=== PATIENT | female | born 1960 | race African-American/Black ===

== ENCOUNTER 2016-08-05 08:09 | Emergency (ER) | payer BC ==
[2016-08-05] MEDS ORDERED: HYDROcodone/Acetaminophen 5/325 mg Tablet ONE (08:40)
[2016-08-05] MEDS ORDERED: Ketorolac Tromethamine 60 MG/2 ML VIAL ONE (08:40)
[2016-08-05] MEDS ORDERED: AMOXicillin 250 MG CAP ONE (08:43)
--- NOTE | 2016-08-05 09:02 | ERRECORD ---
[facility] EMERGENCY RECORD HPI TOOTHACHE (08:38 WMEI) CHIEF COMPLAINT: Patient presents for evaluation of toothache, Patient presents for evaluation of jaw swelling. HISTORIAN: History provided by patient. LOCATION: Symptoms are localized. QUALITY: Pain is dull in nature, described as throbbing. TIME COURSE: Gradual onset of symptoms, 2, days priror to arrival. ASSOCIATED WITH: No associated chills, Associated with facial pain, Associated with facial swelling, No associated fever. EXACERBATED BY: Patient's condition exacerbated by nothing. RELIEVED BY: Patient's condition relieved by nothing. ROS (08:38 WMEI) CONSTITUTIONAL: Historian denies chills, denies fever. EYES: Historian denies eye pain, denies eye discharge. ENT: Historian denies otalgia, denies rhinorrhea, reports sore throat. CARDIOVASCULAR: Historian denies chest pain, no radiation. RESPIRATORY: Historian denies cough, denies shortness of breath. GI: Historian denies nausea, denies vomiting. MUSCULOSKELETAL: Historian denies joint redness, denies joint stiffness. SKIN: Historian denies skin changes, denies skin lesions. NEUROLOGIC: Historian denies dizziness, denies mental status changes. PSYCHIATRIC: Historian denies alcohol abuse, reports anxiety, denies drug abuse. PAST MEDICAL HISTORY MEDICAL HISTORY: Flu vaccine not up to date, Tetanus up to date, Pneumococcal vaccine not up to date, Past medical history includes gastrointestinal disease, gastroesophageal reflux disease, Past medical history includes history of hyperlipidemia, high cholesterol, currently being treated, Past medical history includes history of hypertension, which has been treated, Patient is compliant. (08:20 EPRA) Past medical history includes cardiac history, history of hypertension. which has been treated, Patient is compliant. (08:41 WMEI) FEMALE SURGICAL HISTORY: LEFT BREAST BIOPSY, Surgical history of hysterectomy, Date of surgery 1999, Surgical history of orthopedic surgery, LEFT SHOULDER, Date of surgery 02/22/16, Notes: BONE SPURS. (08:20 EPRA) Surgical history of hysterectomy. (08:41 WMEI) PSYCHIATRIC HISTORY: No previous psychiatric history. (08:20 EPRA) not currently under outpatient psychiatric treatment. (08:41 WMEI) SOCIAL HISTORY: Patient denies alcohol use, Patient &a-1R&a+25V*p+0X*s2147Y*c202B*c15G*c2P*p-0X&a-25V&a+1R Name: Denae Olmos : 1960 F55 MedRec: [id number] AcctNum: [id number] Prepared: FriAug 05, 2016 08:58 by Interface Page 1 of 4 pMD [facility] EMERGENCY RECORD currently uses drugs, abuses marijuana, Social drug use, Last used: 2 weeks ago, Patient currently uses tobacco, smokes cigarettes, daily, Patient has smoked for 30 years, Patient smokes 1/2 packs per day, 30+ YEARS, Lives at home, with family. Patient currently uses tobacco. (08:20 EPRA) Patient currently uses tobacco, smokes cigarettes. (08:41 WMEI) FAMILY HISTORY: No known family hisotry. (08:20 EPRA) KNOWN ALLERGIES codeine sulfate: Reaction: Hives, Severity: Mild, Source: Patient CURRENT MEDICATIONS (08:21 EPRA) lisinopril: TABLET : Strength - 40 mg : ORAL Patient Dose: 40 mg Oral once a day. atorvastatin: TABLET : Strength - 40 mg : ORAL Patient Dose: 40 mg Oral once a day (in the evening). spironolactone: TABLET : Strength - 25 mg : ORAL Patient Dose: 25 mg Oral once a day (in the morning). omeprazole: CAPSULE,DELAYED RELEASE (ENTERIC COATED) : Strength - 40 mg : ORAL Patient Dose: 40 mg Oral once a day (in the morning). carvedilol: TABLET : Strength - 12.5 mg : ORAL Patient Dose: 12.5 mg Oral 2 times a day. aspirin: TABLET : Strength - 81 mg : ORAL Patient Dose: 81 mg Oral once a day (in the morning). traMADol: TABLET : Strength - 50 mg : ORAL Patient Dose: 50 mg null every 6 hours PRN. Lyrica: CAPSULE : Strength - 50 mg : ORAL Patient Dose: 50 mg Oral 3 times a day. VITAL SIGNS VITAL SIGNS: BP: 185/99, Pulse: 76, Resp: 20, Temp: 98.6 (Oral), Pain: 10, O2 sat: 100 on Room Air, Time: 08/05/2016 08:17. (08:17 [facility]) BP: 171/100, Pulse: 77, Resp: 20, O2 sat: 100, Time: 08/05/2016 08:21. (08:21 AHOO) BP: 188/99, Pulse: 76, Resp: 14, Pain: 10, O2 sat: 99 on ra, Time: 08/05/2016 08:50. (08:50 JSMI) PHYSICAL EXAM (08:40 WMEI) CONSTITUTIONAL: Vital signs reviewed, Patient alert and oriented to person, place and time. HEAD: Head exam included findings of head atraumatic, normocephalic. &a-1R&a+25V*p+0X*t9193P*c202B*c15G*c2P*p-0X&a-25V&a+1R Name: Denae Olmos : 1960 F55 MedRec: [id number] AcctNum: [id number] Prepared: FriAug 05, 2016 08:58 by Interface Page 2 of 4 pMD [facility] EMERGENCY RECORD EYES: Conjunctiva normal, Sclera normal. ENT: Ear exam normal, Nose exam normal, Pharynx exam normal. NECK: Neck exam included findings of normal range of motion, Trachea midline. RESPIRATORY CHEST: Breath sounds clear, Chest exam included findings of chest movement symmetrical. CARDIOVASCULAR: Cardiovascular exam included findings of heart rate regular rate and rhythm, Heart sounds normal. ABDOMEN FEMALE: Abdominal exam included findings of abdomen nontender, Bowel sounds normal. UPPER EXTREMITY: Upper extremity exam included findings of inspection normal, Range of motion normal, Motor strength normal. LOWER EXTREMITY: Lower extremity exam included findings of inspection normal, Range of motion normal, Motor strength normal. NEURO: [place] coma scale 15, Neuro exam findings include patient oriented to person, place and time, Speech normal, Gait normal. SKIN: Skin exam included findings of skin warm, dry, and normal in color. LYMPHATIC: Lymphatic exam normal. PSYCHIATRIC: Psychiatric exam included findings of patient oriented to person place and time, Normal affect, Judgment normal, Insight normal. MEDICATION ADMINISTRATION SUMMARY Drug Name: [place], Dose Ordered: 5 mg, Route: Oral, Status: Given, Time: 08:45 08/05/2016, Drug Name: amoxicillin, Dose Ordered: 1000 mg, Route: Oral, Status: Given, Time: 08:45 08/05/2016, Drug Name: ketorolac intramuscular, Dose Ordered: 60 mg, Route: Intramuscular, Status: Given, Time: 08:43 08/05/2016, Detailed record available in Medication Service section. PROBLEM LIST No recorded problems DIAGNOSIS (08:44 WMEI) FINAL: PRIMARY: dental pain. PRESCRIPTION (08:43 WMEI) PC Pen V K: TABLET : 500 mg : ORAL : Quantity: 1 Unit: tab(s) Route: ORAL Schedule: 4 times a day Dispense: 28 Unit: tab(s) May substitute. Refills: No Refills . NOTES: No refills. DISPOSITION PATIENT: Disposition Type: Discharge, Disposition: *Discharge Home. (08:44 WMEI) Patient left the department. (08:53 JSUT) &a-1R&a+25V*p+0X*d3292F*c202B*c15G*c2P*p-0X&a-25V&a+1R Name: Denae Olmos : 1960 5 MedRec: [id number] AcctNum: [id number] Prepared: FriAug 05, 2016 08:58 by Interface Page 3 of 4 pMD [facility] EMERGENCY RECORD Lerma: AHOO=GWENDOLYN Cabrera, October EPRA=MILIND Hall, Edda JSMINERVA=MILIND Tang, Niki WMEI=DO Sesay William &a-1R&a+25V*p+0X*j2660J*c202B*c15G*c2P*p-0X&a-25V&a+1R Name: Denae Olmos Malaika : 1960 5 MedRec: [id number] AcctNum: [id number] Prepared: FriAug 05, 2016 08:58 by Interface Page 4 of 4 pMD MTDD
--- NOTE | 2016-08-05 09:07 | PICIS ---
[facility] EMERGENCY RECORD TRIAGE (FriAug 05, 2016 08:15 EPRA) TRIAGE NOTES: Patient c/o right jaw pain and swelling, pain in throat and ear...pain started on Friday. (FriAug 05, 2016 08:15 EPRA) PATIENT: NAME: Denae Olmos, AGE: 55, GENDER: female, : Fri1960, TIME OF GREET: FriAug 05, 2016 08:09, PREFERRED LANGUAGE: Syriac, ETHNICITY: Not or , ECODE BILLING MAP: [facility], SSN: [id number], Zip Code: [address], KG WEIGHT: 108.86 (est.), PHONE: , , , PERSON ID: [id number], PAYMENT: Deepika Zarco, PCP: DO MORALEZ KRISTEL. (FriAug 05, 2016 08:15 EPRA) COMPLAINT: Jaw Pain/Swelling. (FriAug 05, 2016 08:15 EPRA) ADMISSION: URGENCY: 4 Non Urgent, ADMISSION SOURCE: Home, TRANSPORT: CAR, BED: ER -02. (FriAug 05, 2016 08:15 EPRA) SIRS SCORING: Heart Rate 55-109 (0), Temp range 96.8-101.1 (0), respiratory rate 12-24 (0), Mental Status altered: no (0), Yes, Infection or Suspected Infection. (08:20 EPRA) TRIAGE SCREENING: Patient denies suicidal ideation, Patient denies presence of domestic violence. (08:20 EPRA) LMP: LMP: Hysterectomy. (08:20 EPRA) TREATMENTS IN PROGRESS: Treatments given Prehospital: Tramadol 2 mg @ 0600. (08:20 EPRA) PROVIDERS: TRIAGE NURSE: Edda Hall RN. (FriAug 05, 2016 08:15 EPRA) PREVIOUS VISIT ALLERGIES: codeine sulfate. (FriAug 05, 2016 08:15 EPRA) codeine sulfate. (08:20 EPRA) KNOWN ALLERGIES codeine sulfate: Reaction: Hives, Severity: Mild, Source: Patient CURRENT MEDICATIONS (08:21 EPRA) lisinopril: TABLET : Strength - 40 mg : ORAL Patient Dose: 40 mg Oral once a day. atorvastatin: TABLET : Strength - 40 mg : ORAL Patient Dose: 40 mg Oral once a day (in the evening). spironolactone: TABLET : Strength - 25 mg : ORAL Patient Dose: 25 mg Oral once a day (in the morning). omeprazole: CAPSULE,DELAYED RELEASE (ENTERIC COATED) : Strength - 40 mg : ORAL Patient Dose: 40 mg Oral once a day (in the morning). carvedilol: TABLET : Strength - 12.5 mg : ORAL Patient Dose: 12.5 mg Oral 2 times a day. aspirin: TABLET : Strength - 81 mg : ORAL &a-1R&a+25V*p+0X*s8420I*c202B*c15G*c2P*p-0X&a-25V&a+1R Name: Denae Olmos : 1960 F55 MedRec: [id number] AcctNum: [id number] Prepared: FriAug 05, 2016 09:03 by Interface Page 1 of 6 pMD [facility] EMERGENCY RECORD Patient Dose: 81 mg Oral once a day (in the morning). traMADol: TABLET : Strength - 50 mg : ORAL Patient Dose: 50 mg null every 6 hours PRN. Lyrica: CAPSULE : Strength - 50 mg : ORAL Patient Dose: 50 mg Oral 3 times a day. VITAL SIGNS VITAL SIGNS: BP: 185/99, Pulse: 76, Resp: 20, Temp: 98.6 (Oral), Pain: 10, O2 sat: 100 on Room Air, Time: 08/05/2016 08:17. (08:17 AHOO) BP: 171/100, Pulse: 77, Resp: 20, O2 sat: 100, Time: 08/05/2016 08:21. (08:21 AHOO) BP: 188/99, Pulse: 76, Resp: 14, Pain: 10, O2 sat: 99 on ra, Time: 08/05/2016 08:50. (08:50 [facility]) NURSING ASSESSMENT: DENTAL (08:22 EPRA) CONSTITUTIONAL: Patient arrives ambulatory, Gait steady, History obtained from patient, Patient appears comfortable, Patient cooperative, Patient alert, Oriented to person, place and time, Skin warm, Skin dry, Skin normal in color, Mucous membranes pink, Mucous membranes moist, Patient is well-groomed, Patient complains of Right sided facial/jaw swelling, Patient reports the pain is radiating to her throat and right ear. PAIN: to right lower back tooth (teeth), Onset of pain 08/04/2016, constant, on a scale 0-10 patient rates pain as 10, Took 2 Tramadol @ 0600- patient reports does not relieve the pain. DENTAL: Dental assessment findings include mouth with, poor dental hygiene, Teeth abnormal:, broken secondary tooth (teeth), missing secondary tooth (teeth), gums swollen, Associated with, swelling to the right jaw. SAFETY: Cart/Stretcher in lowest position, Family at bedside, Call light within reach, Hospital ID band on. NURSING PROCEDURE: DISCHARGE NOTE (08:50 JSMI) DISCHARGE: Patient discharged to home, ambulating without assistance, family driving, accompanied by //partner, Summary of Care printed/ provided, Patient requested and was provided an electronic copy of Discharge Instructions, Transition record given to patient, Discharge instructions given to patient, Simple or moderate discharge teaching performed, Prescriptions given and instructions on side effects given, Medication reconciliation form given, Above person(s) verbalized understanding of discharge instructions and follow-up care, Patient instructed not to drive home, Patient treated and evaluated by physician. VITAL SIGNS: BP: 188, / 99, Pulse: 76, Resp: 14, Pain: 10, O2 sat: 99, on: ra. &a-1R&a+25V*p+0X*o3661P*c202B*c15G*c2P*p-0X&a-25V&a+1R Name: Denae Olmos : 1960 F55 MedRec: [id number] AcctNum: [id number] Prepared: FriAug 05, 2016 09:03 by Interface Page 2 of 6 pMD [facility] EMERGENCY RECORD NURSING PROCEDURE: NURSE NOTES NURSES NOTES: Report received, Given to: Niki Tang RN, Provided opportunity to answer questions. (08:24 EPRA) Notes: Dr. Sesay aware of elevated BP at time of discharge. Pt instructed to take regularly prescribed BP medication when she gets home. Pt and family at bedside voice understanding. (08:51 JSMI) MEDICATION ADMINISTRATION SUMMARY Drug Name: [place], Dose Ordered: 5 mg, Route: Oral, Status: Given, Time: 08:45 08/05/2016, Drug Name: amoxicillin, Dose Ordered: 1000 mg, Route: Oral, Status: Given, Time: 08:45 08/05/2016, Drug Name: ketorolac intramuscular, Dose Ordered: 60 mg, Route: Intramuscular, Status: Given, Time: 08:43 08/05/2016, Detailed record available in Medication Service section. MEDICATION SERVICE amoxicillin: Order: amoxicillin (amoxicillin trihydrate) - Dose: 1000 mg : Oral Schedule: Now Ordered by: Rom Sesay DO Entered by: Rom Sesay DO FriAug 05, 2016 08:37 , Acknowledged by: Niki Tang RN FriAug 05, 2016 08:39 Documented as given by: Niki Tang RN FriAug 05, 2016 08:45 Patient, Medication, Dose, Route and Time verified prior to administration. Correct patient, time, route, dose and medication confirmed prior to administration, Patient advised of actions and side-effects prior to administration, Allergies confirmed and medications reviewed prior to administration, Patient in position of comfort, Side rails up, Cart in lowest position, Family at bedside. ketorolac intramuscular: Order: ketorolac intramuscular (ketorolac tromethamine) - Dose: 60 mg : Intramuscular Ordered by: Rom Sesay DO Entered by: Rom Sesay DO FriAug 05, 2016 08:35 , Acknowledged by: Niki Tang RN FriAug 05, 2016 08:39 Documented as given by: Niki Tang RN FriAug 05, 2016 08:43 Patient, Medication, Dose, Route and Time verified prior to administration. IM medication, Medication administered to left hip, Correct patient, time, route, dose and medication confirmed prior to administration, Patient advised of actions and side-effects prior to administration, Allergies confirmed and medications reviewed prior to administration, Patient in position of comfort, Side rails up, Cart in lowest position, Family at bedside. [place]: Order: [place] (hydrocodone bitartrate/acetaminophen) - Dose: 5 mg : Oral POTENTIAL ALLERGY REACTION: 'codeine sulfate [codeine/codeine sulfate]' - Reviewed with patient, has taken without reaction &a-1R&a+25V*p+0X*w0787V*c202B*c15G*c2P*p-0X&a-25V&a+1R Name: Denae Olmos : 1960 F55 MedRec: [id number] AcctNum: [id number] Prepared: FriAug 05, 2016 09:03 by Interface Page 3 of 6 pMD [facility] EMERGENCY RECORD Ordered by: Rom Sesay DO Entered by: Rom Sesay DO FriAug 05, 2016 08:36 , Acknowledged by: Niki Tang RN FriAug 05, 2016 08:39 Documented as given by: Niki Tang RN FriAug 05, 2016 08:45 Patient, Medication, Dose, Route and Time verified prior to administration. Correct patient, time, route, dose and medication confirmed prior to administration, Patient advised of actions and side-effects prior to administration, Allergies confirmed and medications reviewed prior to administration, Patient in position of comfort, Side rails up, Cart in lowest position, Family at bedside. HPI TOOTHACHE (08:38 WMEI) CHIEF COMPLAINT: Patient presents for evaluation of toothache, Patient presents for evaluation of jaw swelling. HISTORIAN: History provided by patient. LOCATION: Symptoms are localized. QUALITY: Pain is dull in nature, described as throbbing. TIME COURSE: Gradual onset of symptoms, 2, days priror to arrival. ASSOCIATED WITH: No associated chills, Associated with facial pain, Associated with facial swelling, No associated fever. EXACERBATED BY: Patient's condition exacerbated by nothing. RELIEVED BY: Patient's condition relieved by nothing. ROS (08:38 WMEI) CONSTITUTIONAL: Historian denies chills, denies fever. EYES: Historian denies eye pain, denies eye discharge. ENT: Historian denies otalgia, denies rhinorrhea, reports sore throat. CARDIOVASCULAR: Historian denies chest pain, no radiation. RESPIRATORY: Historian denies cough, denies shortness of breath. GI: Historian denies nausea, denies vomiting. MUSCULOSKELETAL: Historian denies joint redness, denies joint stiffness. SKIN: Historian denies skin changes, denies skin lesions. NEUROLOGIC: Historian denies dizziness, denies mental status changes. PSYCHIATRIC: Historian denies alcohol abuse, reports anxiety, denies drug abuse. PAST MEDICAL HISTORY MEDICAL HISTORY: Flu vaccine not up to date, Tetanus up to date, Pneumococcal vaccine not up to date, Past medical history includes gastrointestinal disease, gastroesophageal reflux disease, Past medical history includes history of hyperlipidemia, high cholesterol, currently being treated, Past medical history includes history of hypertension, which has been treated, Patient is compliant. (08:20 EPRA) &a-1R&a+25V*p+0X*p9682O*c202B*c15G*c2P*p-0X&a-25V&a+1R Name: Denae Olmos : 1960 F55 MedRec: [id number] AcctNum: [id number] Prepared: FriAug 05, 2016 09:03 by Interface Page 4 of 6 pMD [facility] EMERGENCY RECORD Past medical history includes cardiac history, history of hypertension. which has been treated, Patient is compliant. (08:41 WMEI) FEMALE SURGICAL HISTORY: LEFT BREAST BIOPSY, Surgical history of hysterectomy, Date of surgery 1999, Surgical history of orthopedic surgery, LEFT SHOULDER, Date of surgery 02/22/16, Notes: BONE SPURS. (08:20 EPRA) Surgical history of hysterectomy. (08:41 WMEI) PSYCHIATRIC HISTORY: No previous psychiatric history. (08:20 EPRA) not currently under outpatient psychiatric treatment. (08:41 WMEI) SOCIAL HISTORY: Patient denies alcohol use, Patient currently uses drugs, abuses marijuana, Social drug use, Last used: 2 weeks ago, Patient currently uses tobacco, smokes cigarettes, daily, Patient has smoked for 30 years, Patient smokes 1/2 packs per day, 30+ YEARS, Lives at home, with family. Patient currently uses tobacco. (08:20 EPRA) Patient currently uses tobacco, smokes cigarettes. (08:41 WMEI) FAMILY HISTORY: No known family hisotry. (08:20 EPRA) PHYSICAL EXAM (08:40 WMEI) CONSTITUTIONAL: Vital signs reviewed, Patient alert and oriented to person, place and time. HEAD: Head exam included findings of head atraumatic, normocephalic. EYES: Conjunctiva normal, Sclera normal. ENT: Ear exam normal, Nose exam normal, Pharynx exam normal. NECK: Neck exam included findings of normal range of motion, Trachea midline. RESPIRATORY CHEST: Breath sounds clear, Chest exam included findings of chest movement symmetrical. CARDIOVASCULAR: Cardiovascular exam included findings of heart rate regular rate and rhythm, Heart sounds normal. ABDOMEN FEMALE: Abdominal exam included findings of abdomen nontender, Bowel sounds normal. UPPER EXTREMITY: Upper extremity exam included findings of inspection normal, Range of motion normal, Motor strength normal. LOWER EXTREMITY: Lower extremity exam included findings of inspection normal, Range of motion normal, Motor strength normal. NEURO: [place] coma scale 15, Neuro exam findings include patient oriented to person, place and time, Speech normal, Gait normal. SKIN: Skin exam included findings of skin warm, dry, and normal in color. LYMPHATIC: Lymphatic exam normal. PSYCHIATRIC: Psychiatric exam included findings of patient oriented to person place and time, Normal affect, Judgment normal, Insight normal. EVENTS TRANSFER: Triage to Emergency Emergency Room -02. (FriAug 05, &a-1R&a+25V*p+0X*g1760J*c202B*c15G*c2P*p-0X&a-25V&a+1R Name: Denae Olmos : 1960 F55 MedRec: [id number] AcctNum: [id number] Prepared: FriAug 05, 2016 09:03 by Interface Page 5 of 6 pMD [facility] EMERGENCY RECORD 2017 08:15 EPRA) Removed from Emergency Emergency Room -02. (08:53 JSMI) PROBLEM LIST No recorded problems DIAGNOSIS (08:44 WMEI) FINAL: PRIMARY: dental pain. DISPOSITION PATIENT: Disposition Type: Discharge, Disposition: *Discharge Home. (08:44 WMEI) Patient left the department. (08:53 JSMI) INSTRUCTION (08:45 WMEI) DISCHARGE: DENTAL PAIN. FOLLOWUP: DO MORALEZ KRISTEL, Family Practice, [address] [place] [id number], [phone]. SPECIAL: Follow-up with your PCP/dentist. PRESCRIPTION (08:43 WMEI) PC Pen V K: TABLET : 500 mg : ORAL : Quantity: 1 Unit: tab(s) Route: ORAL Schedule: 4 times a day Dispense: 28 Unit: tab(s) May substitute. Refills: No Refills . NOTES: No refills. IMAGING (08:54 JSMI) *SUPPLY CHARGE SHEET: Image captured from scanner. *DISCHARGE INSTRUCTIONS RECEIPT: Image captured from scanner. Lerma: OO=GWENDOLYN Cabrera, October EPRA=MILIND Hall, Edda JSMI=MILIND Tang, Niki WMEI=DO Sesay William &a-1R&a+25V*p+0X*s5275Z*c202B*c15G*c2P*p-0X&a-25V&a+1R Name: Denae Olmos : 1960 F55 MedRec: [id number] AcctNum: [id number] Prepared: FriAug 05, 2016 09:03 by Interface Page 6 of 6 pMD MTDD
== END 2016-08-05 08:46 | disposition home or self-care (01) ==
LOC: BURERS 08:09
DX: K08.89 Other specified disorders of teeth and supporting structures (principal); K21.9 Gastro-esophageal reflux disease without esophagitis; E78.5 Hyperlipidemia, unspecified; I10 Essential (primary) hypertension; F17.210 Nicotine dependence, cigarettes, uncomplicated; Z90.710 Acquired absence of both cervix and uterus
CPT/HCPCS: 96372; J1885

== ENCOUNTER 2016-08-15 04:16 | Emergency (ER) | payer BC ==
[2016-08-15] MEDS ORDERED: Lorazepam 2 MG/ML VIAL ONE (04:36)
[2016-08-15] MEDS ORDERED: Ondansetron HCl/PF 4 MG/2 ML Vial ONE (04:37)
[2016-08-15 05:08] LABS: #Basophils 0.1 thou/uL (0.0-0.2); #Eosinphils 0.2 thou/uL (0.0-0.7); #Lymphocytes 3.3 thou/uL (1.20-3.40); #Monocytes 0.6 thou/uL (0.11-0.59); #Neutrophils 4.2 thou/uL (1.40-6.50); %Basophils 1.5 % (0.0-1.0); %Eosinophils 2.5 % (0.0-10.0); %Monocytes 7.6 % (0.0-10.0); Hematocrit 37.4 % (36.0-47.0); Mean Platelet Volume 7.1 fL (7.4-10.4); Red Blood Cell (RBC) Count 3.93 mill/uL (4.20-5.40); White Blood Cell (WBC) Count 8.5 thou/uL (4.8-10.8)
[2016-08-15 05:19] LABS: Anion Gap 15 mmol/L (10-20); BUN (Urea Nitrogen) 19 mg/dL (9.8-20.1); Calc. Creatinine Clearance 0 mL/min (70-130); Calcium 9.5 mg/dL (7.8-10.44); Carbon Dioxide 21 mmol/L (22-29); Chloride 108 mmol/L (98-107); Estimated GFR-MDRD 47
[2016-08-15 05:23] LABS: Troponin I 0.013 ng/mL (< 0.028)
[2016-08-15] MEDS ORDERED: Morphine Sulfate 2 MG/ML SYRINGE ONE ×2 (05:38→07:27)
--- NOTE | 2016-08-15 07:05 | RAD ---
PORTABLE CHEST: Date: 08/15/16 An AP portable film at 0441 hours is compared with the 10/27/15 study. The heart size is the same. There are no congestive changes of pleural effusions. The lungs are maggie r. The trachea is midline. IMPRESSION: No acute thoracic findings. POS: HOME
--- NOTE | 2016-08-15 09:09 | ERRECORD ---
[facility] EMERGENCY RECORD HPI CHEST PAIN (04:39 RWAG) CHIEF COMPLAINT: Patient presents for evaluation of chest pain, ongoing, Patient presents for evaluation of X 4 hours. HISTORIAN: History provided by patient. LOCATION: Symptoms are localized, most severe in substernal area, Pain radiates, pain began in mid back. QUALITY: Described as similar to previous episodes. SEVERITY: Maximum severity of symptoms mild, Currently symptoms are mild, Maximum severity of pain rated as 6/10, Current severity of pain rated as 6/10. TIME COURSE: Patient unable to describe onset of symptoms, There has been no change in the patient's symptoms over time. ASSOCIATED WITH: Denies any other complaints. EXACERBATED BY: Patient's condition exacerbated by nothing. RELIEVED BY: Patient's condition relieved by nothing. HEART SCORE: Patients history is Slightly Suspicious (0), Patients ECG is normal (0), Patients age is greater than 45 and less than 65 (1), Patient has 1 or 2 risk factors (1). ROS (04:41 RWAG) CONSTITUTIONAL: Negative constitutional review of systems. EYES: Negative eye review of systems. ENT: Negative ears, nose, throat review of systems. CARDIOVASCULAR: Negative cardiovascular review of systems. RESPIRATORY: Negative respiratory review of systems. GI: Negative gastrointestinal review of systems. GENITOURINARY FEMALE: Negative genitourinary review of systems. MUSCULOSKELETAL: Negative musculoskeletal review of systems. SKIN: Negative skin review of systems. NEUROLOGIC: Negative neurologic review of systems. ENDOCRINE: Negative endocrine review of systems. HEMO/LYMPHATIC: Normal hematologic/lymphatic system review. ALLERGIC/IMMUNOLOGIC: Normal allergy/immunologic system review. PSYCHIATRIC: Historian reports anxiety. NOTES: All systems reviewed, negative except as described above. PAST MEDICAL HISTORY (04:32 MVIL) MEDICAL HISTORY: Flu vaccine not up to date, Tetanus up to date, Pneumococcal vaccine not up to date, Past medical history includes gastrointestinal disease, gastroesophageal reflux disease, Past medical history includes history of hyperlipidemia, high cholesterol, currently being treated, Past medical history includes history of hypertension, which has been treated, Patient is compliant. Past medical history includes cardiac history, Past medical history includes history of hypertension, which has been treated, Patient is compliant. REVIEWED 08/15/16. &a-1R&a+25V*p+0X*[id number]*c202B*c15G*c2P*p-0X&a-25V&a+1R Name: Denae Olmos : 1960 F55 MedRec: [id number] AcctNum: [id number] Prepared: Reyna Aug 15, 2016 09:05 by Interface Page 1 of 4 pMD [facility] EMERGENCY RECORD FEMALE SURGICAL HISTORY: LEFT BREAST BIOPSY, Surgical history of hysterectomy, Date of surgery 1999, Surgical history of orthopedic surgery, LEFT SHOULDER, Date of surgery 02/22/16, Notes: BONE SPURS. Surgical history of hysterectomy. REVIEWED 08/15/16. PSYCHIATRIC HISTORY: No previous psychiatric history. not currently under outpatient psychiatric treatment. REVIEWED 08/15/16. SOCIAL HISTORY: Patient denies alcohol use, Patient currently uses drugs, abuses marijuana, Social drug use, Last used: 2 weeks ago, Patient currently uses tobacco, smokes cigarettes, daily, Patient has smoked for 30 years, Patient smokes 1/2 packs per day, 30+ YEARS, Lives at home, with family. Patient currently uses tobacco. Patient currently uses tobacco, smokes cigarettes. REVIEWED 08/15/16. FAMILY HISTORY: No known family hisotry. REVIEWED 08/15/16. KNOWN ALLERGIES codeine sulfate: Reaction: Hives, Severity: Mild, Source: Patient CURRENT MEDICATIONS (04:50 PGRI) lisinopril: TABLET : Strength - 40 mg : ORAL Patient Dose: 40 mg Oral once a day. atorvastatin: TABLET : Strength - 40 mg : ORAL Patient Dose: 40 mg Oral once a day (in the evening). spironolactone: TABLET : Strength - 25 mg : ORAL Patient Dose: 25 mg Oral once a day (in the morning). omeprazole: CAPSULE,DELAYED RELEASE (ENTERIC COATED) : Strength - 40 mg : ORAL Patient Dose: 40 mg Oral once a day (in the morning). carvedilol: TABLET : Strength - 12.5 mg : ORAL Patient Dose: 12.5 mg Oral 2 times a day. aspirin: TABLET : Strength - 81 mg : ORAL Patient Dose: 81 mg Oral once a day (in the morning). traMADol: TABLET : Strength - 50 mg : ORAL Patient Dose: 50 mg null every 6 hours PRN. Lyrica: CAPSULE : Strength - 50 mg : ORAL Patient Dose: 50 mg Oral 3 times a day. PC Pen V K: TABLET : Strength - 500 mg : ORAL Patient Dose: 1 tab(s) Oral 4 times a day. VITAL SIGNS &a-1R&a+25V*p+0X*t9319B*c202B*c15G*c2P*p-0X&a-25V&a+1R Name: Denae Olmos : 1960 F55 MedRec: [id number] AcctNum: [id number] Prepared: Reyna Aug 15, 2016 09:05 by Interface Page 2 of 4 pMD [facility] EMERGENCY RECORD VITAL SIGNS: BP: 186/110, Pulse: 71, Resp: 27, Temp: 98.1 (Oral), Pain: 6, O2 sat: 100 on Room Air, Time: 08/15/2016 04:22. (04:22 MVIL) BP: 163/91, Pulse: 68, Resp: 19, Pain: 9, O2 sat: 100 on 2L Oxygen, Time: 08/15/2016 04:50. (04:50 MVIL) Pain: 6, Time: 08/15/2016 05:03. (05:03 MVIL) BP: 172/101, Pulse: 68, Resp: 17, O2 sat: 100 on 2L Oxygen, Time: 08/15/2016 05:33. (05:33 PGRI) BP: 142/78, Time: 08/15/2016 05:37. (05:37 PGRI) BP: 130/79, Pulse: 62, Resp: 18 (Non-Labored), Temp: 97.9 (Oral), Pain: 4, O2 sat: 100 on 2L Oxygen, Time: 08/15/2016 06:08. (06:08 PGRI) BP: 156/88, Pulse: 63, Resp: 20, Pain: 5, Time: 08/15/2016 07:15. (07:15 KMOR) O2 sat: 99 on 2L Oxygen, Time: 08/15/2016 07:41. (07:41 AHOO) BP: 151/97, Pulse: 60, Resp: 15, Temp: 98.0 (Oral), Pain: 4, O2 sat: 100 on 2L Oxygen, Time: 08/15/2016 08:00. (08:00 KMOR) PHYSICAL EXAM (04:42 RWAG) CONSTITUTIONAL: Vital Signs Reviewed, Patient afebrile, Pulse normal, Blood pressure, hypertensive, Respiratory rate, increased, Patient appears non toxic, Patient alert and oriented to person, place and time, pt tearful, very anxious. HEAD: Head exam normal. EYES: Eye exam normal. ENT: ENT exam normal. NECK: Neck exam normal. RESPIRATORY CHEST: Respiratory and chest exam normal. CARDIOVASCULAR: Cardiovascular assessment normal. ABDOMEN FEMALE: Abdominal exam normal. BACK: Back exam normal. UPPER EXTREMITY: Upper extremity exam normal. LOWER EXTREMITY: Lower extremity exam normal. NEURO: Verna coma scale 15, Neuro exam findings include patient oriented to person, place and time, Speech normal, Gait normal. SKIN: Skin exam normal. LYMPHATIC: Lymphatic exam normal. PSYCHIATRIC: Psychiatric exam included findings of patient oriented to person place and time, Affect, anxious. EKG INTERPRETATION (04:37 RWAG) 12 LEAD EKG INTERPRETATION: 12 lead EKG interpreted by Emergency Department Physician at time of study, 12 lead EKG shows normal sinus rhythm, Rate (beats per minute): 69, with no ectopics, No previous EKG available for comparison, Conduction normal, ST segments normal, T waves normal, [place] normal, Clinical impression:, non-specific EKG. RADIOLOGYINTERPRETATION (05:39 RWAG) CHEST: Films of the chest show, cardiomegaly. &a-1R&a+25V*p+0X*[id number]*c202B*c15G*c2P*p-0X&a-25V&a+1R Name: Denae Olmos : 1960 F55 MedRec: [id number] AcctNum: [id number] Prepared: [facility] Aug 15, 2016 09:05 by Interface Page 3 of 4 pMD [facility] EMERGENCY RECORD MEDICATION ADMINISTRATION SUMMARY Drug Name: *morphine injection, Dose Ordered: 2 mg, Route: IV Push, Status: Given, Time: 07:32 08/15/2016, Drug Name: morphine injection, Dose Ordered: 2 mg, Route: IV Push, Status: Given, Time: 05:40 08/15/2016, Drug Name: aspirin oral, Dose Ordered: 324 mg, Route: Oral, Status: Given, Time: 04:49 08/15/2016, Drug Name: morphine injection, Dose Ordered: 4 mg, Route: IV Push, Status: Given, Time: 04:48 08/15/2016, Drug Name: ondansetron HCl intravenous, Dose Ordered: 8 mg, Route: IV Push, Status: Given, Time: 04:47 08/15/2016, Drug Name: LORazepam injection, Dose Ordered: 1 mg, Route: IV Push, Status: Given, Time: 04:47 08/15/2016, *Additional information available in notes, Detailed record available in Medication Service section. PROBLEM LIST No recorded problems DIAGNOSIS (05:39 RWAG) FINAL: PRIMARY: CHEST PAIN UNSPECIFIED. PRESCRIPTION No recorded prescriptions DISPOSITION PATIENT: Disposition Type: Discharge, Disposition: *Discharge Home, Disposition Transport: Ambulance, Condition: Improved. (05:39 RWAG) Disposition Type: Transfer, Disposition: Transfer to [facility]. (05:41 RWAG) Patient left the department. (08:58 AHOO) [place]: AHOO=VINCENT CabreraN, October KMOR=MILIND Troy, Crissy MVIL=MILIND Montes, Shelbie PGRI=MILIND Hernandez, Rita RWAG=MD Cedric, Abraham &a-1R&a+25V*p+0X*[id number]*c202B*c15G*c2P*p-0X&a-25V&a+1R Name: AmarilisDenae : 1960 F55 MedRec: [id number] AcctNum: [id number] Prepared: [facility] Aug 15, 2016 09:05 by Interface Page 4 of 4 pMD MTDD
--- NOTE | 2016-08-15 09:13 | PICIS ---
[facility] EMERGENCY RECORD TRIAGE (FriAug 15, 2016 04:29 MVIL) TRIAGE NOTES: C/O LEFT SIDED CP RADIATING TO MID BACK WITH NECK PAIN STARTING AT 12AM. (FriAug 15, 2016 04:29 MVIL) PATIENT: NAME: Denae Olmos, AGE: 55, GENDER: female, : Fri1960, TIME OF GREET: FriAug 15, 2016 04:17, PREFERRED LANGUAGE: [place], ETHNICITY: Not or , ECODE BILLING MAP: [facility], SSN: [id number], Zip Code: [address], KG WEIGHT: 107.05, HEIGHT/LENGTH: 165.10cm, BMI: 39.27, PHONE: , , , PERSON ID: [id number], PAYMENT: Deepika Zarco, PCP: DO MORALEZ KRISTEL. (FriAug 15, 2016 04:29 MVIL) COMPLAINT: HIGH RISK COMPLAINT: CHEST PAIN. (FriAug 15, 2016 04:29 MVIL) ADMISSION: URGENCY: 3 Urgent, ADMISSION SOURCE: Home, TRANSPORT: CAR, BED: ER -02. (FriAug 15, 2016 04:29 MVIL) ASSESSMENT: Assessment: C/O MIDSTERNAL LEFT SIDED CP RADIATING TO MID BACK AND NECK SINCE 12AM TONIGHT. ALSO SOB., Symptoms began 08/15/2016 04:31, Symptoms began 4 hours ago. (04:32 MVIL) PAIN: Patient complains of pain described as, pressure, on a scale 0-10 patient rates pain as 6, Pain is constant, No aggravating factors, No relieving factors. (04:32 MVIL) IMMUNIZATIONS: Flu vaccine up to date, Tetanus immunization up to date, Pneumococcal vaccine up to date. (04:32 MVIL) SIRS SCORING: Heart Rate 55-109 (0), Temp range 96.8-101.1 (0), respiratory rate 12-24 (0), Mental Status altered: no (0), Infection or Suspected Infection: No. (04:32 MVIL) TRIAGE SCREENING: Patient denies suicidal ideation, Patient denies presence of domestic violence. (04:32 MVIL) TREATMENTS IN PROGRESS: Patient on oxygen, via nasal canullae, Percent O2 =100, Patient on shrimp peeler, Rhythm: NSR. (04:32 MVIL) PROVIDERS: TRIAGE NURSE: Shelbie Montes RN. (FriAug 15, 2016 04:29 MVIL) VITAL SIGNS: BP 186/110, Pulse 71, Resp 27, Temp 98.1, (Oral), Pain 6, O2 Sat 100, on Room Air, Time 08/15/2016 04:22. (04:22 MVIL) PREVIOUS VISIT ALLERGIES: codeine sulfate. (FriAug 15, 2016 04:29 MVIL) codeine sulfate. (04:32 MVIL) KNOWN ALLERGIES codeine sulfate: Reaction: Hives, Severity: Mild, Source: Patient CURRENT MEDICATIONS (04:50 PGRI) lisinopril: TABLET : Strength - 40 mg : ORAL Patient Dose: 40 mg Oral once a day. atorvastatin: TABLET : Strength - 40 mg : ORAL Patient Dose: 40 mg Oral once a day (in the evening). &a-1R&a+25V*p+0X*m2450E*c202B*c15G*c2P*p-0X&a-25V&a+1R Name: Denae Olmos : 1960 F55 MedRec: [id number] AcctNum: [id number] Prepared: FriAug 15, 2016 09:10 by Interface Page 1 of 13 pMD [facility] EMERGENCY RECORD spironolactone: TABLET : Strength - 25 mg : ORAL Patient Dose: 25 mg Oral once a day (in the morning). omeprazole: CAPSULE,DELAYED RELEASE (ENTERIC COATED) : Strength - 40 mg : ORAL Patient Dose: 40 mg Oral once a day (in the morning). carvedilol: TABLET : Strength - 12.5 mg : ORAL Patient Dose: 12.5 mg Oral 2 times a day. aspirin: TABLET : Strength - 81 mg : ORAL Patient Dose: 81 mg Oral once a day (in the morning). traMADol: TABLET : Strength - 50 mg : ORAL Patient Dose: 50 mg null every 6 hours PRN. Lyrica: CAPSULE : Strength - 50 mg : ORAL Patient Dose: 50 mg Oral 3 times a day. PC Pen V K: TABLET : Strength - 500 mg : ORAL Patient Dose: 1 tab(s) Oral 4 times a day. VITAL SIGNS VITAL SIGNS: BP: 186/110, Pulse: 71, Resp: 27, Temp: 98.1 (Oral), Pain: 6, O2 sat: 100 on Room Air, Time: 08/15/2016 04:22. (04:22 MVIL) BP: 163/91, Pulse: 68, Resp: 19, Pain: 9, O2 sat: 100 on 2L Oxygen, Time: 08/15/2016 04:50. (04:50 MVIL) Pain: 6, Time: 08/15/2016 05:03. (05:03 MVIL) BP: 172/101, Pulse: 68, Resp: 17, O2 sat: 100 on 2L Oxygen, Time: 08/15/2016 05:33. (05:33 PGRI) BP: 142/78, Time: 08/15/2016 05:37. (05:37 PGRI) BP: 130/79, Pulse: 62, Resp: 18 (Non-Labored), Temp: 97.9 (Oral), Pain: 4, O2 sat: 100 on 2L Oxygen, Time: 08/15/2016 06:08. (06:08 PGRI) BP: 156/88, Pulse: 63, Resp: 20, Pain: 5, Time: 08/15/2016 07:15. (07:15 KMOR) O2 sat: 99 on 2L Oxygen, Time: 08/15/2016 07:41. (07:41 AHOO) BP: 151/97, Pulse: 60, Resp: 15, Temp: 98.0 (Oral), Pain: 4, O2 sat: 100 on 2L Oxygen, Time: 08/15/2016 08:00. (08:00 KMOR) NURSING ASSESSMENT: CARDIOVASCULAR (04:46 PGRI) CONSTITUTIONAL: Patient arrives ambulatory, Gait steady, History obtained from patient, Patient appears, anxious, in distress due to pain, Patient cooperative, Patient alert, Oriented to person, place and time, Skin warm, Skin dry, Skin normal in color, Mucous membranes pink, Mucous membranes moist, Patient complains of chest pain, patient arrives to ER c/o chest pain/back pain/neck pain since midnight. patient states the pain has gotten worse as the night has gone on. denies nausea/vomiting. also c/o sob with exertion. denies diaphoresis/dizziness. PAIN: pressure pain, to the left chest, &a-1R&a+25V*p+0X*d6236G*c202B*c15G*c2P*p-0X&a-25V&a+1R Name: Denae Olmos : 1960 F55 MedRec: [id number] AcctNum: [id number] Prepared: Reyna Aug 15, 2016 09:10 by Interface Page 2 of 13 pMD [facility] EMERGENCY RECORD Pain radiates, to the back, to the neck, Onset of pain 08/15/2016 00:00, on a scale 0-10 patient rates pain as 6, Nothing has been tried to alleviate the pain. CARDIOVASCULAR: Cardiovascular assessment findings include heart rate normal, Heart rhythm normal sinus, Heart sounds normal, S1, S2, Left radial pulse +3(easily palpated, considered normal), Right radial pulse +3(easily palpated, considered normal), Left dorsalis pedis pulse +2(difficult to palpate), Right dorsalis pedis pulse +2(difficult to palpate), No associated diaphoresis, Associated with dyspnea, with exertion, no associated dizziness, no associated edema, no associated palpitations, no associated paresthesias, no associated syncopal episode, no associated weakness, No history of pulmonary embolism, No history of DVT or leg swelling. RESPIRATORY/CHEST: Breath sounds clear, Respiratory assessment findings include respiratory effort easy, Respirations regular, Conversing normally, Neck and chest exam findings include trachea midline, Chest expansion equal, Chest movement symmetrical, Signs of distress, tripod positioning, in mild distress, no associated cough noted, no associated fever. SAFETY: Side rails up, Cart/Stretcher in lowest position, Call light within reach, Hospital ID band on. NURSING ASSESSMENT: FALL RISK (06:10 PGRI) FALL RISK: Change in blood pressure (1), Total score 1. NURSING ASSESSMENT: SKIN (06:10 PGRI) SKIN: Skin assessment findings include skin warm, Skin dry, Skin normal in color, Inspection findings include: No pressure ulcer to the shoulder, Inspection findings include no pressure ulcer to the elbow, Inspection findings include no pressure ulcers to the hip, Inspection findings include no pressure ulcer to the sacrum, Inspection findings include no pressure ulcer to the heel, Inspection findings include no pressure ulcer, Inspection findings include no pressure ulcer. TERRENCE SCALE: (3) Sensory perception slightly limited, (3) Skin is occasionally moist, (3) Patient walks occasionally, (4) No mobility limitations, (3) Adequate nutrition, (2) Patient has potential problem moving, Terrence Risk Total: 18. SAFETY: Side rails up, Cart/Stretcher in lowest position, Call light within reach, Hospital ID band on. NURSING PROCEDURE: BEDSIDE RADIOLOGY (04:45 PGRI) PATIENT IDENTIFIER: Patient actively involved in identification process, Patient's identity verified by patient stating name, Patient's identity verified by patient stating date. BEDSIDE RADIOLOGY: Portable chest x-ray performed. &a-1R&a+25V*p+0X*w0723H*c202B*c15G*c2P*p-0X&a-25V&a+1R Name: Denae Olmos : 1960 F55 MedRec: [id number] AcctNum: [id number] Prepared: [facility] Aug 15, 2016 09:10 by Interface Page 3 of 13 D [facility] EMERGENCY RECORD SAFETY: Side rails up, Cart/Stretcher in lowest position, Call light within reach, Hospital ID band on. NURSING PROCEDURE: [employer] AND [employer]ATOR BRUSH CUTTER (04:46 PGRI) PATIENT IDENTIFIER: Patient actively involved in identification process, Patient's identity verified by patient stating name, Patient's identity verified by patient stating date. [employer] GENERATOR BRUSH CUTTER: Cardiac monitoring indicated for complaint of chest pain, Patient placed on shrimp peeler, Patient placed on non-invasive blood pressure monitor, Patient placed on continuous pulse oximetry. SAFETY: Side rails up, Cart/Stretcher in lowest position, Call light within reach, Hospital ID band on. NURSING PROCEDURE: EKG CHART (04:29 PGRI) PATIENT IDENTIFIER: Patient actively involved in identification process, Patient's identity verified by patient stating name, Patient's identity verified by patient stating date. EKG: EKG indicated for complaint of chest pain, 12 lead EKG performed on the left chest, done by [email or web address], first EKG. SAFETY: Side rails up, Cart/Stretcher in lowest position, Call light within reach, Hospital ID band on. NURSING PROCEDURE: IV PATIENT IDENITIFIER: Patient actively involved in identification process, Patient's identity verified by patient stating name, Patient's identity verified by patient stating date. (04:44 PGRI) IV SITE 1: IV therapy indicated for hydration, IV therapy indicated for medication administration, IV established, to the left wrist, using a 20 gauge catheter, in two attempts, Saline lock established, Flushed with normal saline (mls): 10ml, Labs drawn at time of placement, labeled in the presence of the patient and sent to lab. (04:44 PGRI) FOLLOW-UP SITE 1: After procedure, sterile transparent dressing applied, After procedure, no drainage at IV site, After procedure, no swelling at IV site, After procedure, no redness at IV site, Notes: IV PATENT AND NO REDNESS, SWELLING OR BRUISING NOTED AT SITE UPON TRANSFER TO [facility]. (08:53 AHOO) SAFETY: Side rails up, Cart/Stretcher in lowest position, Call light within reach, Hospital ID band on. (04:44 PGRI) NURSING PROCEDURE: NURSE NOTES NURSES NOTES: Notes: shelbie spoke to transfer center. they will call back about patient's insurance. (05:43 PGRI) Notes: patient resting in bed at this time on phone. RR even and unlabored. in NAD at this time. awaiting transfer center call. (06:09 PGRI) Notes: Report received from MILIND Morfin. Patient resting back in bed, lights turned down and warm blanket given to patient. Patient &a-1R&a+25V*p+0X*d7812A*c202B*c15G*c2P*p-0X&a-25V&a+1R Name: Denae Olmos : 1960 F55 MedRec: [id number] AcctNum: [id number] Prepared: Reyna Aug 15, 2016 09:10 by Interface Page 4 of 13 pMD [facility] EMERGENCY RECORD informed awaiting call back from [facility]. Patient reports pain in starting to come back, will notify physician/. (07:09 KMOR) Notes: Called transfer center to request contacting [facility] for transfer due to med phone being down. (07:47 KMOR) NURSING PROCEDURE: OXYGEN THERAPY (05:30 PGRI) PATIENT IDENTIFIER: Patient actively involved in identification process, Patient's identity verified by patient stating name, Patient's identity verified by patient stating date. OXYGEN THERAPY: 2L oxygen given, via nasal cannula applied, Applied by milind morfin. SAFETY: Side rails up, Cart/Stretcher in lowest position, Family at bedside, Call light within reach, Hospital ID band on. NURSING PROCEDURE: TRANSFER (08:54 KMOR) TRANSFER: Reason for transfer need for specialized care, Diagnosis: chest pain, Accepting institution: [facility] Accepting physician: Og, Referring physician: Cedric, Transported by urgent ambulance, accompanied by emergency medical services personnel, Report called to receiving facility, MILIND Napoles, Provided opportunity to answer questions, Bed assigned Er to ER, Summary of Care printed, Copy of patient record prepared for receiving facility, Copy of diagnostic studies, Status of patient's valuables documented on chart, Medication reconciliation form prepared and sent to receiving facility, Patient consent for transfer signed. BELONGINGS: Belongings remain with patient, Valuables remain with patient. NOTES: Notes: 0534 Transfer center contacted for transfer to [facility] for insurance reasons, 0757 Requested to attempt trans to [facility] since the med phone were down. 0827 Dr. Foley at [facility] accept, 0827 Leonila Abebe AD approval, 0836 EMS contacted. 0845 EMS to room 0854 Patient departed with belongings. ORDER DETAILS Order Name: B type Natriuretic Peptide, Status: Active, Time: 04:37 08/15/2016, User: KAITY, - Ordered for: MD Steele Richard, - Entered by: MD Steele Richard - Thu Aug 15, 2016 04:37, - Quantity: 1, Order Name: Basic Metabolic Panel, Status: Active, Time: 04:37 08/15/2016, User: KAITY, - Ordered for: MD Steele Richard, - Entered by: MD Steele Richard - Thu Aug 15, 2016 04:37, - Quantity: 1, Order Name: [employer]OR [employer]ATOR BRUSH CUTTER ED, Status: Done, Time: 04:40 08/15/2016, User: FLORA, - Ordered for: MD Steele Richard, &a-1R&a+25V*p+0X*g8213M*c202B*c15G*c2P*p-0X&a-25V&a+1R Name: Denae Olmos : 1960 F55 MedRec: [id number] AcctNum: [id number] Prepared: FriAug 15, 2016 09:10 by Interface Page 5 of 13 D [facility] EMERGENCY RECORD - Entered by: MD Steele Richard - FriAug 15, 2016 04:37, - Quantity: 1, Order Name: Cardiac Profile w/CKMB & Troponin - I, Status: Active, Time: 04:37 08/15/2016, User: RWKHRIS, - Ordered for: MD Steele Richard, - Entered by: MD Steele Richard - FriAug 15, 2016 04:37, - Quantity: 1, Order Name: CBC with Differential, Status: Active, Time: 04:37 08/15/2016, User: KAITY, - Ordered for: MD Steele Richard, - Entered by: MD Steele Richard - FriAug 15, 2016 04:37, - Quantity: 1, Order Name: EKG 12 Lead in Emergency Room, Status: Active, Time: 04:37 08/15/2016, User: KAITY, - Ordered for: MD Steele Richard, - Entered by: MD Steele Richard - FriAug 15, 2016 04:37, - Quantity: 1, Order Name: SALINE LOCK, Status: Done, Time: 04:40 08/15/2016, User: FLORA, - Ordered for: MD Steele Richard, - Entered by: MD Steele Richard - FriAug 15, 2016 04:37, - Quantity: 1, Order Name: XR Chest 1 View Portable, Status: Active, Time: 04:37 08/15/2016, User: RWKHRIS, - Ordered for: MD Steele Richard, - Entered by: MD Steele Richard - FriAug 15, 2016 04:37, - Quantity: 1. MEDICATION ADMINISTRATION SUMMARY Drug Name: *morphine injection, Dose Ordered: 2 mg, Route: IV Push, Status: Given, Time: 07:32 08/15/2016, Drug Name: morphine injection, Dose Ordered: 2 mg, Route: IV Push, Status: Given, Time: 05:40 08/15/2016, Drug Name: aspirin oral, Dose Ordered: 324 mg, Route: Oral, Status: Given, Time: 04:49 08/15/2016, Drug Name: morphine injection, Dose Ordered: 4 mg, Route: IV Push, Status: Given, Time: 04:48 08/15/2016, Drug Name: ondansetron HCl intravenous, Dose Ordered: 8 mg, Route: IV Push, Status: Given, Time: 04:47 08/15/2016, Drug Name: LORazepam injection, Dose Ordered: 1 mg, Route: IV Push, Status: Given, Time: 04:47 08/15/2016, *Additional information available in notes, Detailed record available in Medication Service section. MEDICATION SERVICE aspirin oral: Order: aspirin oral (aspirin) - Dose: 324 mg : Oral Schedule: Now Ordered by: Abraham Steele MD &a-1R&a+25V*p+0X*p1017A*c202B*c15G*c2P*p-0X&a-25V&a+1R Name: Denae Olmos : 1960 F55 MedRec: [id number] AcctNum: [id number] Prepared: Reyna Aug 15, 2016 09:10 by Interface Page 6 of 13 pMD [facility] EMERGENCY RECORD Entered by: Abraham Steele MD [facility] Aug 15, 2016 04:34 Documented as given by: Shelbie Montes RN [facility] Aug 15, 2016 04:49 Patient, Medication, Dose, Route and Time verified prior to administration. Amount given: 354MG, Correct patient, time, route, dose and medication confirmed prior to administration, Patient advised of actions and side-effects prior to administration, Allergies confirmed and medications reviewed prior to administration, Patient in position of comfort, Side rails up, Cart in lowest position. : Follow Up : Response assessment performed, No signs or symptoms of allergic reaction noted. (08:53 OO) LORazepam injection: Order: LORazepam injection (lorazepam) - Dose: 1 mg : IV Push Schedule: Now Ordered by: Abraham Steele MD Entered by: Abraham Steele MD [facility] Aug 15, 2016 04:36 Documented as given by: Shelbie Montes RN [facility] Aug 15, 2016 04:47 Patient, Medication, Dose, Route and Time verified prior to administration. Amount given: 1MG, Amount wasted: 1MG, IV SITE #1 IVP, initial medication, Slowly, Catheter placement confirmed via flush prior to administration, IV site without signs or symptoms of infiltration during medication administration, No swelling during administration, No drainage during administration, IV flushed after administration, Correct patient, time, route, dose and medication confirmed prior to administration, Patient advised of actions and side-effects prior to administration, Allergies confirmed and medications reviewed prior to administration, Patient in position of comfort, Side rails up, Cart in lowest position. : Follow Up : Response assessment performed, No signs or symptoms of allergic reaction noted, _IV SITE #1:_. (08:53 OO) morphine injection: Order: morphine injection (morphine sulfate) - Dose: 4 mg : IV Push POTENTIAL ALLERGY REACTION: 'codeine sulfate [codeine/codeine sulfate]' - Benefits outweigh risks, Not a true drug allergy, Potential interaction discussed with patient/family Schedule: Now Ordered by: Abraham Steele MD Entered by: Abraham Steele MD [facility] Aug 15, 2016 04:34 Documented as given by: Shelbie Montes RN [facility] Aug 15, 2016 04:48 Patient, Medication, Dose, Route and Time verified prior to administration. Amount given: 4MG, IV SITE #1 IVP, initial medication, Slowly, Catheter placement confirmed via flush prior to administration, IV site without signs or symptoms of infiltration during medication administration, No swelling during administration, No drainage during administration, IV flushed after administration, Correct patient, &a-1R&a+25V*p+0X*p0448A*c202B*c15G*c2P*p-0X&a-25V&a+1R Name: Denae Olmos : 1960 F55 MedRec: [id number] AcctNum: [id number] Prepared: Reyna Aug 15, 2016 09:10 by Interface Page 7 of 13 pMD [facility] EMERGENCY RECORD time, route, dose and medication confirmed prior to administration, Patient advised of actions and side-effects prior to administration, Allergies confirmed and medications reviewed prior to administration, Patient in position of comfort, Side rails up, Cart in lowest position. morphine injection: Response assessment performed, No signs or symptoms of allergic reaction noted, Decreased pain, Decreased symptoms, _IV SITE #1:_, Pain: 6. (05:03 MVIL) morphine injection: Order: morphine injection (morphine sulfate) - Dose: 2 mg : IV Push POTENTIAL ALLERGY REACTION: 'codeine sulfate [codeine/codeine sulfate]' - Not a true drug allergy Schedule: Now Ordered by: Abraham Steele MD Entered by: Abraham Steele MD [facility] Aug 15, 2016 05:37 , Acknowledged by: Rita Hernandez RN [facility] Aug 15, 2016 05:37 Documented as given by: Rita Hernandez RN [facility] Aug 15, 2016 05:40 Patient, Medication, Dose, Route and Time verified prior to administration. IV SITE #1 IVP, initial medication, Slowly, Awake and alert- acceptable, Catheter placement confirmed via flush prior to administration, IV site without signs or symptoms of infiltration during medication administration, No swelling during administration, No drainage during administration, IV flushed after administration, Correct patient, time, route, dose and medication confirmed prior to administration, Patient advised of actions and side-effects prior to administration, Allergies confirmed and medications reviewed prior to administration, Patient in position of comfort, Side rails up, Cart in lowest position, Call light in reach. : Follow Up : Response assessment performed, No signs or symptoms of allergic reaction noted, _IV SITE #1:_. (08:53 AHOO) morphine injection: Order: morphine injection (morphine sulfate) - Dose: 2 mg : IV Push POTENTIAL ALLERGY REACTION: 'codeine sulfate [codeine/codeine sulfate]' - Reviewed with patient Schedule: Now Notes: Read back and verified, Verbal Order Ordered by: Abraham Steele MD Entered by: Crissy Troy RN [facility] Aug 15, 2016 07:26 , Acknowledged by: Mine Cabrera LVN [facility] Aug 15, 2016 07:29 Documented as given by: Mine Cabrera LVN [facility] Aug 15, 2016 07:32 Patient, Medication, Dose, Route and Time verified prior to administration. Amount given: 2mg, IV SITE #1 IVP, initial medication, Slowly, Awake and alert- acceptable, Catheter placement confirmed via flush prior to administration, IV site without signs or symptoms of infiltration during medication administration, No swelling during administration, No drainage during administration, IV flushed after administration, Correct patient, time, route, dose and medication confirmed prior to administration, Patient advised of actions and side-effects prior to &a-1R&a+25V*p+0X*k1201E*c202B*c15G*c2P*p-0X&a-25V&a+1R Name: Denae Olmos : 1960 F55 MedRec: [id number] AcctNum: [id number] Prepared: [facility] Aug 15, 2016 09:10 by Interface Page 8 of 13 pMD [facility] EMERGENCY RECORD administration, Allergies confirmed and medications reviewed prior to administration, Patient in position of comfort, Side rails up, Cart in lowest position, Family at bedside, approved per md to go ahead and give med. : Follow Up : Response assessment performed, No signs or symptoms of allergic reaction noted, _IV SITE #1:_, pain level decreased to 4/10. (08:53 AHOO) ondansetron HCl intravenous: Order: ondansetron HCl intravenous (ondansetron HCl) - Dose: 8 mg : IV Push Schedule: Now Ordered by: Abraham Steele MD Entered by: Abraham Steele MD [facility] Aug 15, 2016 04:35 Documented as given by: Shelbie Montes RN [facility] Aug 15, 2016 04:47 Patient, Medication, Dose, Route and Time verified prior to administration. Amount given: 8MG, IV SITE #1 IVP, Catheter placement confirmed via flush prior to administration, IV site without signs or symptoms of infiltration during medication administration, No swelling during administration, No drainage during administration, IV flushed after administration, Correct patient, time, route, dose and medication confirmed prior to administration, Patient advised of actions and side-effects prior to administration, Allergies confirmed and medications reviewed prior to administration, Patient in position of comfort, Side rails up, Cart in lowest position. : Follow Up : Response assessment performed, No signs or symptoms of allergic reaction noted, _IV SITE #1:_. (08:53 AHOO) HPI CHEST PAIN (04:39 RW) CHIEF COMPLAINT: Patient presents for evaluation of chest pain, ongoing, Patient presents for evaluation of X 4 hours. HISTORIAN: History provided by patient. LOCATION: Symptoms are localized, most severe in substernal area, Pain radiates, pain began in mid back. QUALITY: Described as similar to previous episodes. SEVERITY: Maximum severity of symptoms mild, Currently symptoms are mild, Maximum severity of pain rated as 6/10, Current severity of pain rated as 6/10. TIME COURSE: Patient unable to describe onset of symptoms, There has been no change in the patient's symptoms over time. ASSOCIATED WITH: Denies any other complaints. EXACERBATED BY: Patient's condition exacerbated by nothing. RELIEVED BY: Patient's condition relieved by nothing. HEART SCORE: Patients history is Slightly Suspicious (0), Patients ECG is normal (0), Patients age is greater than 45 and less than 65 (1), Patient has 1 or 2 risk factors (1). &a-1R&a+25V*p+0X*k2230G*c202B*c15G*c2P*p-0X&a-25V&a+1R Name: Denae Olmos : 1960 F55 MedRec: [id number] AcctNum: [id number] Prepared: Reyna Aug 15, 2016 09:10 by Interface Page 9 of 13 pMD [facility] EMERGENCY RECORD ROS (04:41 RWAG) CONSTITUTIONAL: Negative constitutional review of systems. EYES: Negative eye review of systems. ENT: Negative ears, nose, throat review of systems. CARDIOVASCULAR: Negative cardiovascular review of systems. RESPIRATORY: Negative respiratory review of systems. GI: Negative gastrointestinal review of systems. GENITOURINARY FEMALE: Negative genitourinary review of systems. MUSCULOSKELETAL: Negative musculoskeletal review of systems. SKIN: Negative skin review of systems. NEUROLOGIC: Negative neurologic review of systems. ENDOCRINE: Negative endocrine review of systems. HEMO/LYMPHATIC: Normal hematologic/lymphatic system review. ALLERGIC/IMMUNOLOGIC: Normal allergy/immunologic system review. PSYCHIATRIC: Historian reports anxiety. NOTES: All systems reviewed, negative except as described above. PAST MEDICAL HISTORY (04:32 MVIL) MEDICAL HISTORY: Flu vaccine not up to date, Tetanus up to date, Pneumococcal vaccine not up to date, Past medical history includes gastrointestinal disease, gastroesophageal reflux disease, Past medical history includes history of hyperlipidemia, high cholesterol, currently being treated, Past medical history includes history of hypertension, which has been treated, Patient is compliant. Past medical history includes cardiac history, Past medical history includes history of hypertension, which has been treated, Patient is compliant. REVIEWED 08/15/16. FEMALE SURGICAL HISTORY: LEFT BREAST BIOPSY, Surgical history of hysterectomy, Date of surgery 1999, Surgical history of orthopedic surgery, LEFT SHOULDER, Date of surgery 02/22/16, Notes: BONE SPURS. Surgical history of hysterectomy. REVIEWED 08/15/16. PSYCHIATRIC HISTORY: No previous psychiatric history. not currently under outpatient psychiatric treatment. REVIEWED 08/15/16. SOCIAL HISTORY: Patient denies alcohol use, Patient currently uses drugs, abuses marijuana, Social drug use, Last used: 2 weeks ago, Patient currently uses tobacco, smokes cigarettes, daily, Patient has smoked for 30 years, Patient smokes 1/2 packs per day, 30+ YEARS, Lives at home, with family. Patient currently uses tobacco. Patient currently uses tobacco, smokes cigarettes. REVIEWED 08/15/16. FAMILY HISTORY: No known family hisotry. REVIEWED 08/15/16. PHYSICAL EXAM (04:42 RWAG) CONSTITUTIONAL: Vital Signs Reviewed, Patient afebrile, Pulse normal, Blood pressure, hypertensive, Respiratory rate, increased, Patient appears non toxic, Patient alert and oriented to person, place and time, pt &a-1R&a+25V*p+0X*n8643M*c202B*c15G*c2P*p-0X&a-25V&a+1R Name: Denae Olmos : 1960 F55 MedRec: [id number] AcctNum: [id number] Prepared: Reyna Aug 15, 2016 09:10 by Interface Page 10 of 13 pMD [facility] EMERGENCY RECORD tearful, very anxious. HEAD: Head exam normal. EYES: Eye exam normal. ENT: ENT exam normal. NECK: Neck exam normal. RESPIRATORY CHEST: Respiratory and chest exam normal. CARDIOVASCULAR: Cardiovascular assessment normal. ABDOMEN FEMALE: Abdominal exam normal. BACK: Back exam normal. UPPER EXTREMITY: Upper extremity exam normal. LOWER EXTREMITY: Lower extremity exam normal. NEURO: [place] coma scale 15, Neuro exam findings include patient oriented to person, place and time, Speech normal, Gait normal. SKIN: Skin exam normal. LYMPHATIC: Lymphatic exam normal. PSYCHIATRIC: Psychiatric exam included findings of patient oriented to person place and time, Affect, anxious. EVENTS TRANSFER: Triage to Emergency Emergency Room -02. (04:29 MVIL) Removed from Emergency Emergency Room -02. (08:58 AHOO) RADIOLOGYINTERPRETATION (05:39 RWAG) CHEST: Films of the chest show, cardiomegaly. EKG INTERPRETATION (04:37 RWAG) 12 LEAD EKG INTERPRETATION: 12 lead EKG interpreted by Emergency Department Physician at time of study, 12 lead EKG shows normal sinus rhythm, Rate (beats per minute): 69, with no ectopics, No previous EKG available for comparison, Conduction normal, ST segments normal, T waves normal, [place] normal, Clinical impression:, non-specific EKG. PROBLEM LIST No recorded problems DIAGNOSIS (05:39 RWAG) FINAL: PRIMARY: CHEST PAIN UNSPECIFIED. DISPOSITION PATIENT: Disposition Type: Discharge, Disposition: *Discharge Home, Disposition Transport: Ambulance, Condition: Improved. (05:39 RWAG) Disposition Type: Transfer, Disposition: Transfer to [facility]. (05:41 RWAG) Patient left the department. (08:58 AHOO) PRESCRIPTION No recorded prescriptions &a-1R&a+25V*p+0X*a1513N*c202B*c15G*c2P*p-0X&a-25V&a+1R Name: Denae Olmos : 1960 F55 MedRec: [id number] AcctNum: [id number] Prepared: FriAug 15, 2016 09:10 by Interface Page 11 of 13 pMD [facility] EMERGENCY RECORD IMAGING *EKG: Image captured from scanner. (04:42 MVIL) CONSENTS: Image captured from scanner. (08:57 AHOO) *MEMORANDUM OF TRANSFER: Image captured from scanner. (08:58 AHOO) PHYSICIAN CERTIFICATION STATEMENT: Image captured from scanner. (08:58 AHOO) *SUPPLY CHARGE SHEET: Image captured from scanner. (08:58 AHOO) RESULTS LABORATORY: B type Natriuretic Peptide Collection DT: FriAug 15, 2016 05:04, B type Natriuretic Peptide 22.5 pg/mL, Range (0-100). (05:37 RWAG) Cardiac Profile w/CKMB & TropI Collection DT: FriAug 15, 2016 05:04, CKMB 1.9 ng/mL, Range (0-6.6), Troponin I 0.013 ng/mL, Range (< 0.028), Reference Range , 0.00 - 0.028 ng/mL Negative 0.029 - 0.29 ng/mL , Indeterminate Greater or Equal to 0.3 ng/mL Strongly suggests MA , . (05:37 [facility]) Basic Metabolic Panel Collection DT: FriAug 15, 2016 05:04, Sodium 140 mmol/L, Range (136-145), Potassium 3.5 mmol/L, Range (3.5-5.1), *Chloride 108 - H mmol/L, Range (98-107), *Carbon Dioxide 21 - L mmol/L, Range (22-29), Anion Gap 15 mmol/L, Range (10-20), BUN (Urea Nitrogen) 19 mg/dL, Range (9.8-20.1), *Creatinine 1.39 - H mg/dL, Range (0.6-1.1), Estimated GFR-MDRD 47 , Reference Range for Estimated GFR: Greater than 90, mL/min/1.73 m2 NOTE: The MDRD equation has not been validated for use, with the elderly (over 70 years of age), women, patients with, serious comorbid condition or persons with extremes of body size, muscle, mass, or nutritional status. , *Glucose 118 - H mg/dL, Range (70-105), Calcium 9.5 mg/dL, Range (7.8-10.44). (05:37 [facility]) CBC with Differential Collection DT: FriAug 15, 2016 05:04, White Blood Cell (WBC) Count 8.5 thou/uL, Range (4.8-10.8), *Red Blood Cell (RBC) Count 3.93 - L mill/uL, Range (4.20-5.40), *Hemoglobin 11.9 - L g/dL, Range (12.0-16.0), Hematocrit 37.4 %, Range (36.0-47.0), Mean Corpuscular Volume 95.0 fl, Range (81.0-99.0), Mean Corpuscular Hemoglobin 30.4 pg, Range (27.0-31.0), Mean Corpuscular HGB CONC 32.0 g/dL, Range (32.0-36.0), *RBC Distribution Width 11.1 - L %, Range (11.5-14.5), &a-1R&a+25V*p+0X*g9812V*c202B*c15G*c2P*p-0X&a-25V&a+1R Name: Denae Olmos : 1960 F55 MedRec: [id number] AcctNum: [id number] Prepared: FriAug 15, 2016 09:10 by Interface Page 12 of 13 pMD [facility] EMERGENCY RECORD Platelet Count 310 thou/uL, Range (130-400), *Mean Platelet Volume 7.1 - L fL, Range (7.4-10.4), %Neutrophils 49.6 %, Range (42.0-75.0), %Lymphocytes 38.9 %, Range (21.0-51.0), %Monocytes 7.6 %, Range (0.0-10.0), %Eosinophils 2.5 %, Range (0.0-10.0), *%Basophils 1.5 - H %, Range (0.0-1.0), #Neutrophils 4.2 thou/uL, Range (1.40-6.50), #Lymphocytes 3.3 thou/uL, Range (1.20-3.40), *#Monocytes 0.6 - H thou/uL, Range (0.11-0.59), #Eosinphils 0.2 thou/uL, Range (0.0-0.7), #Basophils 0.1 thou/uL, Range (0.0-0.2). (05:37 [facility]) CBC with Differential Collection DT: FriAug 15, 2016 05:04, White Blood Cell (WBC) Count 8.5 thou/uL, Range (4.8-10.8), *Red Blood Cell (RBC) Count 3.93 - L mill/uL, Range (4.20-5.40), *Hemoglobin 11.9 - L g/dL, Range (12.0-16.0), Hematocrit 37.4 %, Range (36.0-47.0), Mean Corpuscular Volume 95.0 fl, Range (81.0-99.0), Mean Corpuscular Hemoglobin 30.4 pg, Range (27.0-31.0), Mean Corpuscular HGB CONC 32.0 g/dL, Range (32.0-36.0), *RBC Distribution Width 11.1 - L %, Range (11.5-14.5), Platelet Count 310 thou/uL, Range (130-400), *Mean Platelet Volume 7.1 - L fL, Range (7.4-10.4), %Neutrophils 49.6 %, Range (42.0-75.0), %Lymphocytes 38.9 %, Range (21.0-51.0), %Monocytes 7.6 %, Range (0.0-10.0), %Eosinophils 2.5 %, Range (0.0-10.0), *%Basophils 1.5 - H %, Range (0.0-1.0), #Neutrophils 4.2 thou/uL, Range (1.40-6.50), #Lymphocytes 3.3 thou/uL, Range (1.20-3.40), *#Monocytes 0.6 - H thou/uL, Range (0.11-0.59), #Eosinphils 0.2 thou/uL, Range (0.0-0.7), #Basophils 0.1 thou/uL, Range (0.0-0.2). (05:37 MVIL) [place]: AHOO=GWENDOLYN Cabrera, October KMOR=MILIND Troy, Crissy MVIL=MILIND Montes, Shelbie PGRI=MILIND Hernandez [place] RWAG=MD Cedric, Abraham &a-1R&a+25V*p+0X*v9970O*c202B*c15G*c2P*p-0X&a-25V&a+1R Name: Denae Olmos : 1960 F55 MedRec: [id number] AcctNum: [id number] Prepared: FriAug 15, 2016 09:10 by Interface Page 13 of 13 pMD [facility] MEDICATION RECONCILIATION You were seen in the Emergency Department on: FriAug 15, 2016 KNOWN ALLERGIES codeine sulfate: Reaction: Hives, Severity: Mild, Source: Patient MEDICATIONS GIVEN WHILE IN THE EMERGENCY DEPARTMENT aspirin oral (aspirin) - Dose: 324 milligram(s) : Oral morphine injection (morphine sulfate) - Dose: 4 milligram(s) : IV Push ondansetron HCl intravenous (ondansetron HCl) - Dose: 8 milligram(s) : IV Push LORazepam injection (lorazepam) - Dose: 1 milligram(s) : IV Push morphine injection (morphine sulfate) - Dose: 2 milligram(s) : IV Push morphine injection (morphine sulfate) - Dose: 2 milligram(s) : IV Push HOME MEDICATIONS aspirin : TABLET : Strength - 81 mg : ORAL Patient had been takin mg Oral once a day (in the morning). atorvastatin : TABLET : Strength - 40 mg : ORAL Patient had been takin mg Oral once a day (in the evening). carvedilol : TABLET : Strength - 12.5 mg : ORAL Patient had been takin.5 mg Oral 2 times a day. lisinopril : TABLET : Strength - 40 mg : ORAL Patient had been takin mg Oral once a day. Lyrica : CAPSULE : Strength - 50 mg : ORAL Patient had been takin mg Oral 3 times a day. omeprazole : CAPSULE,DELAYED RELEASE (ENTERIC COATED) : Strength - 40 mg : ORAL Patient had been takin mg Oral once a day (in the morning). PC Pen V K : TABLET : Strength - 500 mg : ORAL Patient had been takin tab(s) Oral 4 times a day. spironolactone : TABLET : Strength - 25 mg : ORAL Patient had been takin mg Oral once a day (in the morning). &a-1R&a+25V*p+0X*q4813J*c202B*c15G*c2P*p-0X&a-25V&a+1R Name: Denae Olmos : 1960 F55 MedRec: [id number] AcctNum: [id number] Prepared: FriAug 15, 2016 09:10 by Interface pMD [facility] MEDICATION RECONCILIATION traMADol : TABLET : Strength - 50 mg : ORAL Patient had been takin mg null every 6 hours PRN. Notes from the emergency department Reviewed with patient &a-1R&a+25V*p+0X*l9744F*c202B*c15G*c2P*p-0X&a-25V&a+1R Name: Denae Olmos : 1960 F55 MedRec: [id number] AcctNum: [id number] Prepared: Reyna Aug 15, 2016 09:10 by Interface pMD [facility]
== END 2016-08-15 08:53 | disposition short-term general hospital (02) ==
LOC: BURERS 04:16
DX: R07.2 Precordial pain (principal); K21.9 Gastro-esophageal reflux disease without esophagitis; E78.5 Hyperlipidemia, unspecified; E78.00 Pure hypercholesterolemia, unspecified; I10 Essential (primary) hypertension; F17.210 Nicotine dependence, cigarettes, uncomplicated; Z79.82 Long term (current) use of aspirin; Z79.899 Other long term (current) drug therapy
CPT/HCPCS: 36415; 71010; 80048; 82553; 83880; 84484; 85025; 93005; 96374; 96375; 96376; J2060; J2270; J2405

== ENCOUNTER 2017-12-21 05:13 | Emergency (ER) | payer OTHER ==
[2017-12-21] MEDS ORDERED: Ketorolac Tromethamine 60 MG/2 ML VIAL ONE (05:39)
--- NOTE | 2017-12-21 10:08 | RAD ---
LFET RIBS WITH PA CHEST: DATE: 12/21/17. FINDINGS: Comparison is made with a 08/15/16 study. The heart is normal in size. The mediastinum appears normal and the lungs are clear. No infiltrate, effusion, or pneumothorax was seen. The left ribs appear intact. No fracture or area of bony destruction was seen within them. Subtle f ractures might be missed in this patient. Incidentally noted is a left shoulder arthroplasty. IMPRESSION: No acute findings. POS: HOME
== END 2017-12-21 06:05 | disposition home or self-care (01) ==
LOC: BURERS 05:13
DX: S20.212A Contusion of left front wall of thorax, initial encounter (principal); K21.9 Gastro-esophageal reflux disease without esophagitis; E78.5 Hyperlipidemia, unspecified; I10 Essential (primary) hypertension; F17.210 Nicotine dependence, cigarettes, uncomplicated; Z79.82 Long term (current) use of aspirin; Z79.899 Other long term (current) drug therapy; W50.2XXA Accidental twist by another person, initial encounter
CPT/HCPCS: 94799; 96372; J1885

== ENCOUNTER 2018-03-31 09:23 | Emergency (ER) | payer OTHER ==
[2018-03-31] MEDS ORDERED: HYDROcodone/Acetaminophen 10/325 mg Tablet ONE (10:24)
[2018-03-31] MEDS ORDERED: Ibuprofen 800 MG TAB ONE (10:25)
[2018-03-31 11:00] LABS: #Basophils 0.1 thou/uL (0.0-0.2); #Eosinphils 0.2 thou/uL (0.0-0.7); #Lymphocytes 1.5 thou/uL (1.20-3.40); #Monocytes 0.8 thou/uL (0.11-0.59); #Neutrophils 4.3 thou/uL (1.40-6.50); %Basophils 0.9 % (0.0-1.0); %Eosinophils 2.6 % (0.0-10.0); %Lymphocytes 22.3 % (21.0-51.0); %Monocytes 11.3 % (0.0-10.0); Mean Corpuscular HGB CONC 32.8 g/dL (32.0-36.0); Mean Corpuscular Hemoglobin 31.2 pg (27.0-31.0); Mean Corpuscular Volume 94.9 fL (78.0-98.0); Platelet Count 654 thou/uL (130-400); RBC Distribution Width 11.9 % (11.5-14.5); Red Blood Cell (RBC) Count 2.87 mill/uL (4.20-5.40); White Blood Cell (WBC) Count 6.8 thou/uL (4.8-10.8)
[2018-03-31 11:12] LABS: Acetaminophen Less than 6.0 mcg/mL (10.0-30.0); Alcohol Less than 10 mg/dL (Less than 10); Salicylate Less than 8.0 mg/dL (15.0-30.0)
[2018-03-31 11:14] LABS: ALT (SGPT) 10 U/L (8-55); AST (SGOT) 11 U/L (5-34); Albumin 3.5 g/dL (3.5-5.0); Alkaline Phosphatase 73 U/L (40-150); Anion Gap 15 mmol/L (10-20); BUN (Urea Nitrogen) 6 mg/dL (9.8-20.1); Bilirubin, Total 0.3 mg/dL (0.2-1.2); Calc. Creatinine Clearance 0 mL/min (70-130); Calcium 9.2 mg/dL (7.8-10.44); Carbon Dioxide 26 mmol/L (22-29); Chloride 102 mmol/L (98-107); Estimated GFR-MDRD 83; Globulin 3.4 g/dL (2.4-3.5); Glucose 111 mg/dL (70-105); Potassium 4.2 mmol/L (3.5-5.1); Protein, Total 6.9 g/dL (6.0-8.3); Sodium 139 mmol/L (136-145)
[2018-03-31 12:23] LABS: Bilirubin Negative (Negative); Clarity Clear (Clear); Glucose, Urine (Dipstick) Negative (Negative); Leukocyte Negative (Negative); Nitrite Negative (Negative); Protein, Urine (Dipstick) Negative (Neg-Trace); Specific Gravity, Urine 1.015 (1.005-1.030); Urobilinogen 0.2 mg/dL (0.2-1.0)
[2018-03-31 12:24] LABS: Blood, Urine Negative (Negative)
[2018-03-31 12:30] LABS: Amphetamine Not Detected (NotDetected); Barbiturates Screen Not Detected (NotDetected); Benzodiazepine Screen Not Detected (NotDetected); Cocaine Metabolite Screen Detected (NotDetected); Medtox Control Line Valid? VALID (VALID); Methadone Not Detected (NotDetected); Methamphetamine Not Detected (NotDetected); Opiate Screen Detected (NotDetected); Oxycodone Screen Detected (NotDetected); Phencyclidine (PCP) Not Detected (NotDetected); THC/Cannabinoid Screen Detected (NotDetected); Tricyclic Screen Detected (NotDetected)
== END 2018-03-31 12:59 | disposition left against medical advice (07) ==
LOC: BURERS 09:23
DX: F32.9 Major depressive disorder, single episode, unspecified (principal); R45.851 Suicidal ideations; K21.9 Gastro-esophageal reflux disease without esophagitis; E78.5 Hyperlipidemia, unspecified; I10 Essential (primary) hypertension; F17.210 Nicotine dependence, cigarettes, uncomplicated; Z79.82 Long term (current) use of aspirin; Z79.891 Long term (current) use of opiate analgesic; Z79.899 Other long term (current) drug therapy
CPT/HCPCS: 36415; 80053; 80306; 80307; 81003; 84443; 85025; 94760

== ENCOUNTER 2018-05-17 12:56 | Emergency (ER) | payer OTHER ==
[2018-05-17] MEDS ORDERED: Dexamethasone 4 mg/ml Vial ONE (13:05)
[2018-05-17] MEDS ORDERED: Ketorolac Tromethamine 60 MG/2 ML VIAL ONE (13:05)
== END 2018-05-17 13:19 | disposition home or self-care (01) ==
LOC: BURERS 12:56
DX: J02.9 Acute pharyngitis, unspecified (principal); I10 Essential (primary) hypertension; K21.9 Gastro-esophageal reflux disease without esophagitis; E78.5 Hyperlipidemia, unspecified; F17.210 Nicotine dependence, cigarettes, uncomplicated; Z79.891 Long term (current) use of opiate analgesic; Z79.82 Long term (current) use of aspirin; Z79.899 Other long term (current) drug therapy
CPT/HCPCS: 96372; J1100; J1885

== ENCOUNTER 2018-09-13 17:37 | Emergency (ER) | payer OTHER ==
[2018-09-13] MEDS ORDERED: Ondansetron PF 4 MG/2 ML Vial ONE (17:58)
[2018-09-13] MEDS ORDERED: Morphine 4 MG/ML VIAL ONE (17:58)
[2018-09-13 18:20] LABS: ALT (SGPT) 13 U/L (8-55); AST (SGOT) 14 U/L (5-34); Albumin 4.1 g/dL (3.5-5.0); Alkaline Phosphatase 84 U/L (40-150); Anion Gap 16 mmol/L (10-20); BUN (Urea Nitrogen) 9 mg/dL (9.8-20.1); Bilirubin, Total 0.4 mg/dL (0.2-1.2); Calc. Creatinine Clearance 0 mL/min (70-130); Calcium 9.3 mg/dL (7.8-10.44); Carbon Dioxide 24 mmol/L (22-29); Chloride 102 mmol/L (98-107); Estimated GFR-MDRD 75; Globulin 2.9 g/dL (2.4-3.5); Glucose 122 mg/dL (70-105); Lipase 8 U/L (8-78); Potassium 4.2 mmol/L (3.5-5.1); Sodium 138 mmol/L (136-145)
[2018-09-13 18:24] LABS: Mean Corpuscular HGB CONC 34.6 g/dL (32.0-36.0); Mean Corpuscular Hemoglobin 31.9 pg (27.0-31.0); Mean Corpuscular Volume 92.3 fL (78.0-98.0); Mean Platelet Volume 6.8 fL (7.4-10.4); Platelet Count 362 thou/uL (130-400); RBC Distribution Width 11.4 % (11.5-14.5); Red Blood Cell (RBC) Count 4.39 mill/uL (4.20-5.40); White Blood Cell (WBC) Count 8.2 thou/uL (4.8-10.8)
[2018-09-13 18:28] LABS: Band 1 % (5-11); Lymphocytes 15 % (21-51); MDiff Complete? YES; Monocytes 2 % (0-10); Neutrophil 77 % (42-75); Reactive Lymphocytes 4 % (0-10)
--- NOTE | 2018-09-13 19:35 | CT ---
CT ABDOMEN AND PELVIS WITHOUT CONTRAST: HISTORY: Epigastric pain. FINDINGS: Absence of oral and IV contrast reduces the sensitivity of the exam, particularly for evaluation of s olid organs involved. The lung bases are unremarkable. No calcified gallstones are seen. No free air or free fluid is not ed in the abdomen or pelvis. The small bowel loops are not abnormally dilated. A normal appearing a ppendix is present. There are vascular calcifications without evidence of aneurysmal dilatation of t he abdominal aorta. There are postop changes with metallic hardware in the lumbosacral spine. No calculi are seen in the kidneys, ureters, or urinary bladder. No hydroureteronephrosis is identif ied on either side. IMPRESSION: No CT evidence of urinary tract calculi/obstruction or appendicitis. POS: DAVID
== END 2018-09-13 20:18 | disposition home or self-care (01) ==
LOC: BURERS 17:37
DX: R11.2 Nausea with vomiting, unspecified (principal); R10.13 Epigastric pain; K21.9 Gastro-esophageal reflux disease without esophagitis; I10 Essential (primary) hypertension; F17.210 Nicotine dependence, cigarettes, uncomplicated; Z79.899 Other long term (current) drug therapy; Z79.01 Long term (current) use of anticoagulants
CPT/HCPCS: 74176; 80053; 83690; 85025; 96361; 96372; 96374; 96375; J0500; J2270; J2405

== ENCOUNTER 2018-09-20 07:01 | Emergency (ER) | payer OTHER ==
[2018-09-20 07:39] LABS: #Basophils 0.2 thou/uL (0.0-0.2); #Eosinphils 0.2 thou/uL (0.0-0.7); #Lymphocytes 3.7 thou/uL (1.20-3.40); #Monocytes 1.1 thou/uL (0.11-0.59); #Neutrophils 5.2 thou/uL (1.40-6.50); %Basophils 1.8 % (0.0-1.0); %Eosinophils 1.8 % (0.0-10.0); %Lymphocytes 35.4 % (21.0-51.0); %Monocytes 10.8 % (0.0-10.0); %Neutrophils 50.2 % (42.0-75.0); Hemoglobin 11.1 g/dL (12.0-16.0); Mean Corpuscular HGB CONC 34.3 g/dL (32.0-36.0); Mean Corpuscular Hemoglobin 31.1 pg (27.0-31.0); Mean Corpuscular Volume 90.7 fL (78.0-98.0); Mean Platelet Volume 7.4 fL (7.4-10.4); Platelet Count 296 thou/uL (130-400); RBC Distribution Width 11.2 % (11.5-14.5); Red Blood Cell (RBC) Count 3.57 mill/uL (4.20-5.40); White Blood Cell (WBC) Count 10.3 thou/uL (4.8-10.8)
[2018-09-20 07:52] LABS: ALT (SGPT) 12 U/L (8-55); AST (SGOT) 14 U/L (5-34); Albumin 3.7 g/dL (3.5-5.0); Alkaline Phosphatase 85 U/L (40-150); Anion Gap 12 mmol/L (10-20); BUN (Urea Nitrogen) 21 mg/dL (9.8-20.1); Bilirubin, Total 0.8 mg/dL (0.2-1.2); Calc. Creatinine Clearance 0 mL/min (70-130); Calcium 9.1 mg/dL (7.8-10.44); Carbon Dioxide 27 mmol/L (22-29); Chloride 100 mmol/L (98-107); Estimated GFR-MDRD 33; Globulin 2.7 g/dL (2.4-3.5); Glucose 101 mg/dL (70-105); Potassium 3.7 mmol/L (3.5-5.1); Protein, Total 6.4 g/dL (6.0-8.3); Sodium 135 mmol/L (136-145)
[2018-09-20] MEDS ORDERED: HYDROcodone/Acetaminophen 5/325 mg Tablet ONE (09:04)
--- NOTE | 2018-09-20 10:48 | CT ---
CT OF THE PELVIS WITHOUT CONTRAST: DATE: 09/20/2018. FINDINGS: Spiral CT of the pelvis was done following trauma. Axial slices were acquired followed by coronal an d sagittal reconstructions. No fracture was seen. All pelvic bones and the hips appeared intact. There was no dislocation of ei ther hip. The sacrum and SI joints appear normal. The symphysis shows no widening or offset. The p ubic rami are intact. No soft tissue abnormalities of acute concern were seen within the pelvis. Th ere is no free fluid or evidence of hemorrhage. IMPRESSION: No acute traumatic changes. POS: HOME
--- NOTE | 2018-09-20 10:51 | CT ---
CT OF THE LUMBAR SPINE WITHOUT CONTRAST: DATE: 09/20/2018. FINDINGS: Spiral CT of the lumbar spine was performed following trauma. Axial slices were acquired, then coron al and sagittal reconstructions were done. There has been a posterior lumbar fusion from the L2 through S1 levels with pedicle screws at each le ellen bilaterally. No fracture, dislocation, or acute bony change was seen. It is difficult to assess the status of the disks and spinal canal at the surgical levels due to artifact from the pedicle scr ews. At any rate, there are no gross fractures. On the coronal images, there was a question of a fracture in T11 or T12, but the axial images show th at there is motion artifact here and so I doubt that this is a real finding. IMPRESSION: Prominent degenerative changes throughout the spine. Postoperative changes as expected. No acute tr aumatic findings. POS: HOME
--- NOTE | 2018-09-20 10:52 | RAD ---
LEFT SHOULDER 3 VIEWS: DATE: 09/20/2018. FINDINGS: A SHOULDER ARTHROPLASTY IS IN PLACE. There is no sign of fracture or dislocation. It has a normal p ostoperative appearance. The surrounding bones all appeared intact. IMPRESSION: No acute finding. POS: HOME
== END 2018-09-20 09:00 | disposition home or self-care (01) ==
LOC: BURERS 07:01
DX: M54.5 Low back pain (principal); F32.9 Major depressive disorder, single episode, unspecified; K21.9 Gastro-esophageal reflux disease without esophagitis; E78.5 Hyperlipidemia, unspecified; F17.210 Nicotine dependence, cigarettes, uncomplicated; Z79.82 Long term (current) use of aspirin; Z79.899 Other long term (current) drug therapy; Z79.891 Long term (current) use of opiate analgesic
CPT/HCPCS: 36415; 72131; 72192; 80053; 85025; 93005

== ENCOUNTER 2020-02-26 10:56 | Emergency (ER) | payer OTHER ==
[2020-02-26] MEDS ORDERED: Iopamidol 370 76% 100 ML VIAL ONE (11:41)
[2020-02-26] MEDS ORDERED: Ondansetron PF 4 MG/2 ML Vial ONE (11:46)
[2020-02-26] MEDS ORDERED: Morphine 4 MG/ML VIAL ONE (11:46)
[2020-02-26 11:48] LABS: #Basophils 0.1 thou/uL (0.0-0.2); #Eosinphils 0.1 thou/uL (0.0-0.7); #Monocytes 0.4 thou/uL (0.11-0.59); %Basophils 0.5 % (0.0-1.0); %Eosinophils 0.5 % (0.0-10.0); %Lymphocytes 10.1 % (21.0-51.0); %Monocytes 4.3 % (0.0-10.0); %Neutrophils 84.5 % (42.0-75.0); Hemoglobin 13.2 g/dL (12.0-16.0); Mean Corpuscular HGB CONC 31.3 g/dL (32.0-36.0); Mean Corpuscular Hemoglobin 30.8 pg (27.0-31.0); Mean Corpuscular Volume 98.3 fL (78.0-98.0); Mean Platelet Volume 8.6 fL (7.4-10.4); Platelet Count 318 thou/uL (130-400); RBC Distribution Width 11.8 % (11.5-14.5); Red Blood Cell (RBC) Count 4.28 mill/uL (4.20-5.40); White Blood Cell (WBC) Count 9.5 thou/uL (4.8-10.8)
[2020-02-26 12:02] LABS: ALT (SGPT) 14 U/L (8-55); AST (SGOT) 13 U/L (5-34); Albumin 4.9 g/dL (3.5-5.0); Alkaline Phosphatase 85 U/L (40-110); Anion Gap 19 mmol/L (10-20); BUN (Urea Nitrogen) 11 mg/dL (9.8-20.1); Bilirubin, Total 0.5 mg/dL (0.2-1.2); Calc. Creatinine Clearance 0 mL/min (70-130); Carbon Dioxide 21 mmol/L (22-29); Chloride 102 mmol/L (98-107); Estimated GFR-MDRD 69; Globulin 3.7 g/dL (2.4-3.5); Glucose 145 mg/dL (70-105); Lipase 19 U/L (8-78); Potassium 3.6 mmol/L (3.5-5.1); Protein, Total 8.6 g/dL (6.0-8.3); Sodium 138 mmol/L (136-145)
[2020-02-26 12:18] LABS: Bilirubin Negative (Negative); Blood, Urine Negative (Negative); Clarity Clear (Clear); Glucose, Urine (Dipstick) Negative (Negative); Ketone, Urine Negative (Negative); Leukocyte Negative (Negative); Nitrite Negative (Negative); Protein, Urine (Dipstick) Negative (Neg-Trace); Urobilinogen 0.2 mg/dL (Less than 2); pH, Urine 8.5 (5.0-9.0)
--- NOTE | 2020-02-26 12:37 | RAD ---
XR Chest 1 View Portable History: Dyspnea Comparison: Radiograph July 2016. Findings: Lungs are clear. No pneumothorax. No effusion. Heart size upper limits of normal. No acute osseous abnormality. Left shoulder hemiarthroplasty in satisfactory location. Impression: No acute intrathoracic abnormality.
--- NOTE | 2020-02-26 13:16 | CT ---
CT Abdomen Pelvis W Con History: Abdominal pain Comparison: CT exam 2019 Findings: Mild atelectasis in the lung bases. No pericardial effusion. There is contrast within the renal collecting systems limiting solid organ evaluation due to the rob yed phase of contrast. Appendix is visualized and is normal. No hydronephrosis. Aortic contour is normal. Moderate atherosclerotic plaque. The liver, spleen, pancreas, adrenal glands are unremarkable. Small hypodensity superior pole left ki dney likely a small cyst. Extensive posterior spinal fusion hardware thoracolumbar spine. Impression: No acute inflammatory process within the abdomen or pelvis.
[2020-02-26] MEDS ORDERED: Lisinopril 20 MG TAB ONE (13:27)
[2020-02-26] MEDS ORDERED: HYDROcodone/Acetaminophen 5/325 mg Tablet ONE (14:34)
[2020-02-28 11:53] LABS: SARS-CoV-2 MS2 Positive; SARS-CoV-2 N Gene Negative; SARS-CoV-2 S Gene Negative; SARS-CoV-2 by NAA Not Detected (NotDetected); SARS-CoV-2 orf1ab Negative
== END 2020-02-26 14:40 | disposition home or self-care (01) ==
LOC: BURERS 10:56
DX: B34.9 Viral infection, unspecified (principal); Z20.828 Contact with and (suspected) exposure to other viral communicable diseases; E11.9 Type 2 diabetes mellitus without complications; K21.9 Gastro-esophageal reflux disease without esophagitis; E78.5 Hyperlipidemia, unspecified; E78.00 Pure hypercholesterolemia, unspecified; F32.9 Major depressive disorder, single episode, unspecified; F43.10 Post-traumatic stress disorder, unspecified; F17.210 Nicotine dependence, cigarettes, uncomplicated; Z79.82 Long term (current) use of aspirin; Z79.899 Other long term (current) drug therapy
CPT/HCPCS: 51701; 71045; 74177; 80053; 81003; 83605; 83690; 84484; 85025; 87635; 93005; 96374; 96375; J2270; J2405; Q9967; U0003

== ENCOUNTER 2021-02-01 13:35 | Emergency (ER) | payer BC ==
[2021-02-01 14:26] LABS: ALT (SGPT) 15 U/L (8-55); AST (SGOT) 12 U/L (5-34); Albumin 4.1 g/dL (3.4-4.8); Alkaline Phosphatase 67 U/L (40-110); Anion Gap 17 mmol/L (10-20); BUN (Urea Nitrogen) 15 mg/dL (9.8-20.1); Bilirubin, Total 0.3 mg/dL (0.2-1.2); Calc. Creatinine Clearance 0 mL/min (70-130); Carbon Dioxide 24 mmol/L (23-31); Chloride 103 mmol/L (98-107); Globulin 3.1 g/dL (2.4-3.5); Glucose 128 mg/dL (80-115); Potassium 4.2 mmol/L (3.5-5.1); Protein, Total 7.2 g/dL (5.8-8.1); Sodium 140 mmol/L (136-145)
[2021-02-01 14:35] LABS: #Basophils 0.1 thou/uL (0.0-0.2); #Eosinphils 0.2 thou/uL (0.0-0.7); #Lymphocytes 2.1 thou/uL (1.20-3.40); #Monocytes 0.4 thou/uL (0.11-0.59); #Neutrophils 3.3 thou/uL (1.40-6.50); %Basophils 1.3 % (0.0-1.0); %Eosinophils 2.7 % (0.0-10.0); %Lymphocytes 35.3 % (21.0-51.0); %Monocytes 6.5 % (0.0-10.0); %Neutrophils 54.1 % (42.0-75.0); Hemoglobin 13.1 g/dL (12.0-16.0); Mean Platelet Volume 7.9 fL (7.4-10.4); Platelet Count 330 thou/uL (130-400); RBC Distribution Width 11.7 % (11.5-14.5); Red Blood Cell (RBC) Count 4.08 mill/uL (4.20-5.40); White Blood Cell (WBC) Count 6.1 thou/uL (4.8-10.8)
== END 2021-02-01 19:06 | disposition left against medical advice (07) ==
LOC: BURERS 13:35
DX: R07.89 Other chest pain (principal); E11.9 Type 2 diabetes mellitus without complications; I10 Essential (primary) hypertension; K21.9 Gastro-esophageal reflux disease without esophagitis; E78.5 Hyperlipidemia, unspecified; E78.00 Pure hypercholesterolemia, unspecified; F17.210 Nicotine dependence, cigarettes, uncomplicated
CPT/HCPCS: 71045; 80053; 83880; 84484; 85025; 93005

== ENCOUNTER 2024-01-25 18:13 | Emergency (ER) | payer OTHER, SELFPAY ==
[2024-01-25] MEDS ORDERED: Ibuprofen 200 MG TAB ONE (20:42)
== END 2024-01-25 21:28 | disposition home or self-care (01) ==
LOC: BURERS 18:13
DX: S93.432A Sprain of tibiofibular ligament of left ankle, initial encounter (principal); I11.0 Hypertensive heart disease with heart failure; I50.9 Heart failure, unspecified; E11.9 Type 2 diabetes mellitus without complications; E78.5 Hyperlipidemia, unspecified; F31.9 Bipolar disorder, unspecified; F17.210 Nicotine dependence, cigarettes, uncomplicated; X50.1XXA Overexertion from prolonged static or awkward postures, initial encounter; Z79.84 Long term (current) use of oral hypoglycemic drugs; Z79.82 Long term (current) use of aspirin; Z79.899 Other long term (current) drug therapy